=== PATIENT | male | born 1940 | race Caucasian/White ===

== ENCOUNTER → 2017-05-07 | Outpatient (CLI) | payer OTHER ==
[~2017-05-07] MED LIST: NKHM
[2017-05-07 11:22] LABS: BASO # 0.1 10*3/uL (0.0-0.1); BASO % 1.4 % (0.0-1.0); EOS # 0.6 10*3/uL (0.0-0.4); HEMATOCRIT 37.6 % (42.0-52.0); HEMOGLOBIN 12.2 g/dl (14.0-18.0); LYMPH # 2.1 10*3/uL (1.3-4.4); LYMPH % 27.1 % (27.0-41.0); MEAN CELL VOLUME 96.7 fl (80.0-94.0); MEAN CORPUSCULAR HGB 31.4 pg (27.0-31.0); MEAN CORPUSCULAR HGB CONC 32.4 g/dl (33.0-37.0); MEAN PLATELET VOLUME 10.1 fl (9.6-12.3); MONO # 0.7 10*3/uL (0.1-1.0); MONO % 9.1 % (3.0-9.0); NEUT # 4.4 10*3/uL (2.3-7.9); NEUT % 55.1 % (47.0-73.0); PLATELET COUNT AUTOMATED 255 10*3/uL (130-400); RED BLOOD COUNT 3.89 10*6/uL (4.50-5.90); RED CELL DISTRI WIDTH 13.6 % (0-14.5); WHITE BLOOD COUNT 7.9 10*3/uL (4.8-10.8)
[2017-05-07 11:42] LABS: ALBUMIN 3.2 gm/dl (3.1-4.5); ALKALINE PHOSPHATASE 92 U/L (45-117); BUN 15 mg/dl (7-24); CHLORIDE 105 mmol/L (98-107); CHOLESTEROL 182 mg/dL (<200); CREATININE 1.14 mg/dL (0.70-1.30); HDL CHOLESTEROL 33 mg/dl (40-60); POTASSIUM 4.3 mmol/L (3.5-5.1); SGOT/AST 24 IU/L (3-35); SGPT/ALT 19 U/L (12-78); SODIUM 141 mmol/L (136-145); TOTAL PROTEIN 7.4 gm/dL (6.4-8.2); TRIGLYCERIDES 407 mg/dl (<150)
== END | disposition home or self-care (01) ==
LOC: LAB 10:40
PROVIDERS: Internal Medicine
DX: I10 Essential (primary) hypertension (principal); E78.2 Mixed hyperlipidemia; E66.3 Overweight; R73.9 Hyperglycemia, unspecified

== ENCOUNTER → 2017-07-02 | Day surgery (SDC) | payer OTHER ==
[~2017-07-02] VITALS: Ht 187.9 cm; Wt 85.7 kg
[~2017-07-02] MED LIST changes: +FISH OIL 1,0001 EAC5 PO
--- NOTE | ~2017-07-02 | PROC NOTE ---
[place], [place] PROCEDURE NOTE NAME: JOHN PAYNE UNIT #: [id number] ROOM: DOCTOR: STEVE VILLANUEVA MD BIRTHDATE: [birth year] DOS: 07/02/2017 PREOPERATIVE DIAGNOSIS: History of colonic polyps. POSTOPERATIVE DIAGNOSIS: History of colonic polyps. PROCEDURE: Colonoscopy with polypectomy times 2 (35 cm, 45 cm from the anal verge). ENDOSCOPIST: Steve Villanueva MD SPICE FUMIGATOR: LUIS F. ANESTHESIA: MAC. INDICATIONS: This is a 76-year-old gentleman who is here for a colonoscopy for history of colonic polyps. The procedure and its complications were explained to the patient in detail preoperatively. Complications that were discussed included but were not limited to bleeding, colon perforation, missed lesions, prolonged pain. He agreed to proceed. DESCRIPTION OF PROCEDURE: After identifying the patient, the patient was brought to the operating suite and laid in the left lateral position. After IV sedation was administered, a digital rectal exam was performed. This was within normal limits. Prior to this, a timeout procedure was called. An adult colonoscope was now introduced into the anal canal and advanced sequentially into the rectum, sigmoid colon, descending colon, transverse colon and ascending colon up to the cecum. Upon reaching the cecum, the scope was withdrawn. Total withdrawal time was approximately 10 minutes. At approximately 45 and 35 cm, two small polyps were removed with the help of biopsy forceps and sent for histopathological diagnosis in the same container. After hemostasis was confirmed, the scope was withdrawn. There were no other lesions that could be visualized. The patient tolerated the procedure well. There were no complications. Dr. Steve Villanueva, the attending surgeon, was present throughout the operating case. Based on these findings, the patient is recommended to have another colonoscopy in the next 2-3 years or sooner if new symptoms appear. Steve Villanueva MD CM:PROCNOTE:PROCEDURE NOTE [id number] STEVE VILLANUEVA MD
[2017-07-02 08:15] VITALS: BP 149/43
[2017-07-02 10:30] VITALS: BP 170/84
[2017-07-02 10:45] VITALS: BP 182/68
[2017-07-02 11:00] VITALS: BP 160/68
== END | disposition home or self-care (01) ==
LOC: SDC 07-01 11:00
DX: Z12.11 Encounter for screening for malignant neoplasm of colon (principal); K63.5 Polyp of colon; Z86.010 Personal history of colon polyps; F17.210 Nicotine dependence, cigarettes, uncomplicated; Z98.890 Other specified postprocedural states

== ENCOUNTER 2017-08-08 17:39 | Emergency (ER) | payer OTHER ==
[~2017-08-08] VITALS: Wt 81.6 kg
[2017-08-08 18:15] LABS: HEMATOCRIT 40.8 % (42.0-52.0); HEMOGLOBIN 13.4 g/dl (14.0-18.0); MEAN CELL VOLUME 93.4 fl (80.0-94.0); MEAN CORPUSCULAR HGB 30.7 pg (27.0-31.0); MEAN CORPUSCULAR HGB CONC 32.8 g/dl (33.0-37.0); MEAN PLATELET VOLUME 10.5 fl (9.6-12.3); PLATELET COUNT AUTOMATED 216 10*3/uL (130-400); RED BLOOD COUNT 4.37 10*6/uL (4.50-5.90); RED CELL DISTRI WIDTH 14.2 % (0-14.5); WHITE BLOOD COUNT 16.7 10*3/uL (4.8-10.8)
[2017-08-08 18:24] LABS: ACT PARTIAL THROMBO TIME 22.3 SECONDS (20.8-31.5); INTERNATIONAL NORM RATIO 1.1 (2.0-3.5)
[2017-08-08 18:32] LABS: ALBUMIN 3.7 gm/dl (3.1-4.5); ALKALINE PHOSPHATASE 89 U/L (45-117); BUN 18 mg/dl (7-24); CHLORIDE 109 mmol/L (98-107); CREATININE 1.42 mg/dL (0.70-1.30); POTASSIUM 4.8 mmol/L (3.5-5.1); SGOT/AST 33 IU/L (3-35); SGPT/ALT 20 U/L (12-78); SODIUM 141 mmol/L (136-145); TOTAL PROTEIN 7.6 gm/dL (6.4-8.2)
[2017-08-08 18:33] LABS: TOTAL CELLS COUNTED 100 #CELLS
[2017-08-08 18:34] LABS: PLATELET SUFFICIENCY NORMAL (NORMAL)
[2017-08-08 18:35] LABS: TROPONIN I < 0.015 ng/ml (<0.045)
== END 2017-08-08 18:53 | disposition short-term general hospital (02) ==
LOC: ED 17:39
PROVIDERS: Emergency Medicine
DX: I63.512 Cerebral infarction due to unspecified occlusion or stenosis of left middle cerebral artery (principal); F10.10 Alcohol abuse, uncomplicated

== ENCOUNTER 2017-09-07 01:26 | Emergency (ER) | payer OTHER ==
[~2017-09-07] VITALS: Ht 182.8 cm; Wt 72.6 kg
== END 2017-09-07 01:40 | disposition home or self-care (01) ==
LOC: ED 01:26
DX: K94.23 Gastrostomy malfunction (principal)